=== PATIENT | female | born 1950 | race Caucasian/White ===

== ENCOUNTER 2016-06-21 05:59 | Emergency (ER) | payer OTHER ==
[~2016-06-21] VITALS: Ht 167.6 cm; Wt 61.2 kg
--- NOTE | ~2016-06-21 | EKG ---
[address] [address] [place] [address] ELECTROCARDIOGRAM REPORT Name: NIGELRICARDO Prema Room #: 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
[2016-06-21] MEDS ORDERED: ST. JOSEPH ASPI81 MG (06:12)
[2016-06-21] MEDS ORDERED: ACYCLOVIR 400400 MG (06:12)
[2016-06-21] MEDS ORDERED: COREG6.25 MG (06:13)
[2016-06-21] MEDS ORDERED: COREG6.25 MG PO (06:13)
[2016-06-21] MEDS ORDERED: FLOVENT DISKUS50 MCG INH (06:14)
[2016-06-21] MEDS ORDERED: FLONASE 0.05%50 MCG NASAL (06:14)
[2016-06-21] MEDS ORDERED: FOLIC ACID 1 MG1 MG (06:14)
[2016-06-21] MEDS ORDERED: GLIPIZIDE 10 MG10 MG PO (06:15)
[2016-06-21] MEDS ORDERED: CLARITIN10 MG PO (06:15)
[2016-06-21] MEDS ORDERED: SINGULAIR 10 MG10 M1 PO (06:16)
[2016-06-21] MEDS ORDERED: OLANZAPINE5 MG (06:16)
[2016-06-21] MEDS ORDERED: CALCIUM 500 +1 EAC5 PO (06:17)
[2016-06-21] MEDS ORDERED: ZANTAC 150MG T150 MG (06:17)
[2016-06-21] MEDS ORDERED: VITAMIN B-12500 MCG PO (06:18)
[2016-06-21] MEDS ORDERED: OLANZAPINE20 MG (06:18)
[2016-06-21] MEDS ORDERED: VITAMIN D2000 UNI1 (06:18)
[2016-06-21] MEDS ORDERED: TOLTERODINE TART4 MG (06:19)
[2016-06-21] MEDS ORDERED: PRAVACHOL40 MG PO (06:19)
[2016-06-21] MEDS ORDERED: FISH OIL 1,001000 M2 PO (06:20)
[2016-06-21] MEDS ORDERED: MAPAP500 MG (06:20)
[2016-06-21] MEDS ORDERED: NATURAL TEARS OPHTHALMIC (06:21)
[2016-06-21] MEDS ORDERED: ZENPEP DR 20,01 EACH (06:21)
[2016-06-21] MEDS ORDERED: LACTULOSE10 GM/152 PO (06:22)
[2016-06-21] MEDS ORDERED: XIFAXAN550 MG (06:23)
[2016-06-21] MEDS ORDERED: LOPERAMIDE 2 MG2 M1 PO (06:24)
[2016-06-21] MEDS ORDERED: MILK OF MA2400 MG/10 (06:25)
[2016-06-21] MEDS ORDERED: BISACODYL SUPP10 MG (06:26)
[2016-06-21] MEDS ORDERED: ACETAMINOPHEN325 M1 PO (06:26)
[2016-06-21] MEDS ORDERED: ROBAFEN100 MG/5 M PO (06:29)
[2016-06-21] MEDS ORDERED: PHENASEPTIC1 BOT (06:30)
[2016-06-21] MEDS ORDERED: DEPAKOTE PO (06:31)
[2016-06-21 06:58] LABS: HEMATOCRIT 34.7 % (37.0-47.0); HEMOGLOBIN 11.6 gm/dL (12.0-15.0); MCH 35.2 pg (26.0-34.0); MCHC 33.3 g/dL (28.0-37.0); MCV 105.8 fL (80.0-100.0); RBC 3.28 mil/uL (4.20-5.00); RDW 14.4 % (10.5-14.5); WBC 4.6 thou/uL (4.0-11.0)
[2016-06-21 07:01] LABS: CREATININE 1.5 mg/dL (0.6-1.0); POTASSIUM 5.1 mmol/L (3.5-5.1)
[2016-06-21 07:39] VITALS: BP 163/85
== END 2016-06-21 09:05 | disposition home or self-care (01) ==
LOC: ER 05:59
PROVIDERS: Emergency Medicine
DX: S00.83XA Contusion of other part of head, initial encounter (principal); S80.212A Abrasion, left knee, initial encounter; S80.211A Abrasion, right knee, initial encounter; W18.39XA Other fall on same level, initial encounter; Y93.89 Activity, other specified; Y92.89 Other specified places as the place of occurrence of the external cause; Y99.8 Other external cause status; Z88.8 Allergy status to other drugs, medicaments and biological substances; F17.210 Nicotine dependence, cigarettes, uncomplicated; F10.99 Alcohol use, unspecified with unspecified alcohol-induced disorder

== ENCOUNTER 2017-10-23 05:43 | Emergency (ER) | payer OTHER ==
[~2017-10-23] VITALS: Ht 167.6 cm; Wt 77.1 kg
--- NOTE | ~2017-10-23 | EKG ---
[address] [address] [facility] [place] [address] ELECTROCARDIOGRAM REPORT Name: RICARDO MANNING Prema Room #: 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1950 Requested By: Thelma Egan Order Number: [id number] MD: Gee Goldberg Measurements Intervals [place] Rate: 64 P: -25 OK: 164 QRS: -18 QRSD: 82 T: 0 QT: 419 QTc: 433 Interpretive Statements Sinus rhythm Borderline T abnormalities, inferior leads Compared to ECG 06/21/2016 07:13:46 septal Q waves less prominent Electronically Signed On 10-25-2017 8:23:32 CDT by Gee Goldberg [email or web address] <ELECTRONICALLY SIGNED> By: Gee Goldberg MD, [facility] 10/25/17 0823 0551 [id number] Gee Goldberg MD, [facility] /EPI
--- NOTE | ~2017-10-23 | EKG ---
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1950 Requested By: Lizz Hdz Order Number: [id number] MD: Gee Goldberg Measurements Intervals [place] Rate: 61 P: 2 PA: 162 QRS: -20 QRSD: 82 T: 0 QT: 428 QTc: 431 Interpretive Statements Sinus rhythm Borderline left axis deviation Borderline T wave abnormality, inferior leads Compared to ECG 06/21/2016 07:13:46 No significant change was found Electronically Signed On 10-25-2017 8:24:24 CDT by Gee Goldberg [email or web address] <ELECTRONICALLY SIGNED> By: Gee Goldberg MD, [facility] 10/25/17823 1 1 Gee Goldberg MD, [facility] /EPI
[~2017-10-23 05:43] MED LIST: ACETAMINOPHEN325 M1 PO; ACYCLOVIR 400400 MG; BISACODYL SUPP10 MG; CALCIUM 500 +1 EAC5 PO; CLARITIN10 MG PO; COREG6.25 MG; COREG6.25 MG PO; DEPAKOTE PO; FISH OIL 1,001000 M2 PO; FLONASE 0.05%50 MCG NASAL; FLOVENT DISKUS50 MCG INH; FOLIC ACID 1 MG1 MG; GLIPIZIDE 10 MG10 MG PO; LACTULOSE10 GM/152 PO; LOPERAMIDE 2 MG2 M1 PO; MAPAP500 MG; MILK OF MA2400 MG/10; NATURAL TEARS OPHTHALMIC; OLANZAPINE20 MG; OLANZAPINE5 MG; PHENASEPTIC1 BOT; PRAVACHOL40 MG PO; ROBAFEN100 MG/5 M PO; SINGULAIR 10 MG10 M1 PO; ST. JOSEPH ASPI81 MG; TOLTERODINE TART4 MG; VITAMIN B-12500 MCG PO; VITAMIN D2000 UNI1; XIFAXAN550 MG; ZANTAC 150MG T150 MG; ZENPEP DR 20,01 EACH
[2017-10-23 06:37] LABS: HEMOGLOBIN 9.5 gm/dL (12.0-15.0); MCH 32.3 pg (26.0-34.0); MCHC 32.8 g/dL (28.0-37.0); MCV 98.4 fL (80.0-100.0); PLATELET COUNT 127 thou/uL (150-400); RBC 2.95 mil/uL (4.20-5.00); WBC 4.1 thou/uL (4.0-11.0)
[2017-10-23 06:44] LABS: ANION GAP 11 mmol/L (7-16); BUN 39 mg/dL (7-18); CALCIUM 8.3 mg/dL (8.5-10.1); CHLORIDE 114 mmol/L (98-107); CO2 19 mmol/L (21-32); CREATININE 1.8 mg/dL (0.6-1.0); GLUCOSE 147 mg/dL (74-106); POTASSIUM 4.4 mmol/L (3.5-5.1); SODIUM 144 mmol/L (136-145)
[2017-10-23 06:53] LABS: TROPONIN-I <0.06 ng/mL (<0.06)
[2017-10-23] MEDS ORDERED: TOLTERODINE TART4 MG PO (06:54)
[2017-10-23] MEDS ORDERED: HYDRALAZINE 2525 MG PO (06:55)
[2017-10-23] MEDS ORDERED: CLONIDINE0.1 PO (06:55)
[2017-10-23] MEDS ORDERED: HYDRALAZINE 5050 MG PO (06:56)
[2017-10-23] MEDS ORDERED: SYNTHROID100 MC1 PO (06:56)
[2017-10-23] MEDS ORDERED: CARVEDILOL25 MG PO (06:57)
[2017-10-23] MEDS ORDERED: OYSCO 500+D TA1 EACH PO (06:57)
[2017-10-23] MEDS ORDERED: SENOKOT-S TABL1 EACH PO (06:58)
[2017-10-23] MEDS ORDERED: VITAMIN B-12500 MCG PO (06:58)
[2017-10-23] MEDS ORDERED: DEPAKOTE ER500 MG PO (06:59)
[2017-10-23] MEDS ORDERED: FISH OIL 1,001000 M2 PO (06:59)
[2017-10-23] MEDS ORDERED: 24HOUR ALLERGY10 MG PO (07:00)
[2017-10-23] MEDS ORDERED: DEPAKOTE 250MG250 MG PO (07:01)
[2017-10-23] MEDS ORDERED: SILTUSSIN100 MG/5 M PO (07:02)
[2017-10-23 08:17] LABS: ABSOLUTE NEUTROPHILS 3.5 thou/uL (1.4-8.2)
[2017-10-23 08:18] LABS: ANISOCYTOSIS 1+; OVALOCYTES FEW
[2017-10-23] MEDS ORDERED: PRILOSEC 20 MG20 MG PO (08:50)
[2017-10-23 10:13] VITALS: BP 142/69
== END 2017-10-23 10:14 ==
LOC: ER 05:43
PROVIDERS: Emergency Medicine
DX: R07.89 Other chest pain (principal); E11.9 Type 2 diabetes mellitus without complications; F31.9 Bipolar disorder, unspecified; F25.9 Schizoaffective disorder, unspecified; I10 Essential (primary) hypertension; E78.5 Hyperlipidemia, unspecified; E03.9 Hypothyroidism, unspecified; K21.9 Gastro-esophageal reflux disease without esophagitis; E78.00 Pure hypercholesterolemia, unspecified; E66.9 Obesity, unspecified; Z68.27 Body mass index [BMI] 27.0-27.9, adult; Z87.891 Personal history of nicotine dependence; Z88.8 Allergy status to other drugs, medicaments and biological substances; Z91.048 Other nonmedicinal substance allergy status

== ENCOUNTER 2019-01-31 13:32 | Emergency (ER) | payer OTHER, MEDICAID ==
[~2019-01-31] VITALS: Ht 167.6 cm; Wt 69.0 kg
[~2019-01-31 13:32] MED LIST changes: +24HOUR ALLERGY10 MG PO; +CARVEDILOL25 MG PO; +CLONIDINE0.1 PO; +DEPAKOTE 250MG250 MG PO; +DEPAKOTE ER500 MG PO; +HYDRALAZINE 2525 MG PO; +HYDRALAZINE 5050 MG PO; +OYSCO 500+D TA1 EACH PO; +PRILOSEC 20 MG20 MG PO; +SENOKOT-S TABL1 EACH PO; +SILTUSSIN100 MG/5 M PO; +SYNTHROID100 MC1 PO; +TOLTERODINE TART4 MG PO
[2019-01-31] MEDS ORDERED: NORVASC 2.5 MG2.5 M1 PO (14:27)
[2019-01-31] MEDS ORDERED: BACTRIM DS TAB1 EACH PO (14:31)
[2019-01-31] MEDS ORDERED: KEFLEX500 M1 PO (14:31)
[2019-01-31] MEDS ORDERED: NORCO 5-325 TA1 EAC1 PO (14:31)
[2019-01-31 15:00] VITALS: BP 151/85
== END 2019-01-31 17:09 | disposition home or self-care (01) ==
LOC: ER 13:32
DX: L03.314 Cellulitis of groin (principal); R22.9 Localized swelling, mass and lump, unspecified; I10 Essential (primary) hypertension; E11.9 Type 2 diabetes mellitus without complications; E78.5 Hyperlipidemia, unspecified; E03.9 Hypothyroidism, unspecified; K21.9 Gastro-esophageal reflux disease without esophagitis; Z87.891 Personal history of nicotine dependence; Z88.8 Allergy status to other drugs, medicaments and biological substances

== ENCOUNTER → 2019-09-01 | Outpatient (CLI) | payer OTHER, MEDICAID ==
[~2019-09-01] MED LIST changes: +BACTRIM DS TAB1 EACH PO; +KEFLEX500 M1 PO; +NORCO 5-325 TA1 EAC1 PO; +NORVASC 2.5 MG2.5 M1 PO
== END ==
LOC: SJCVC 11:47
PROVIDERS: ATTEND Internal Medicine
DX: I49.9 Cardiac arrhythmia, unspecified (principal); R94.31 Abnormal electrocardiogram [ECG] [EKG]; I12.9 Hypertensive chronic kidney disease with stage 1 through stage 4 chronic kidney disease, or unspecified chronic kidney disease; E11.22 Type 2 diabetes mellitus with diabetic chronic kidney disease; N18.3 Chronic kidney disease, stage 3 (moderate); E78.5 Hyperlipidemia, unspecified; K21.9 Gastro-esophageal reflux disease without esophagitis; E03.9 Hypothyroidism, unspecified; Z87.891 Personal history of nicotine dependence; Z79.899 Other long term (current) drug therapy

== ENCOUNTER → 2020-07-01 | Outpatient (CLI) | payer OTHER | LOC: SJCVCIMAG 04-29 08:07 | PROVIDERS: ATTEND Internal Medicine | DX: R94.31 Abnormal electrocardiogram [ECG] [EKG] (principal); I35.8 Other nonrheumatic aortic valve disorders; I12.9 Hypertensive chronic kidney disease with stage 1 through stage 4 chronic kidney disease, or unspecified chronic kidney disease; E11.22 Type 2 diabetes mellitus with diabetic chronic kidney disease; N18.4 Chronic kidney disease, stage 4 (severe); I73.9 Peripheral vascular disease, unspecified; E78.5 Hyperlipidemia, unspecified; R13.12 Dysphagia, oropharyngeal phase; K21.9 Gastro-esophageal reflux disease without esophagitis; E03.9 Hypothyroidism, unspecified; F25.0 Schizoaffective disorder, bipolar type; K73.9 Chronic hepatitis, unspecified; Z79.82 Long term (current) use of aspirin; Z79.899 Other long term (current) drug therapy; Z87.891 Personal history of nicotine dependence ==